=== PATIENT | female | born 1990 | race Caucasian/White ===

== ENCOUNTER 2017-11-11 10:08 | Inpatient (IN) | payer OTHER ==
[2017-11-08 14:35] VITALS: BMI 34.7
[2017-11-11] MEDS ORDERED: ceFAZolin IN SWFI 2 GM/20 ML SYRINGE IVP ONE (10:24)
[2017-11-11] MEDS ORDERED: CITRIC ACID-SODIUM CITRATE 15 ML CUP PO ONE (10:24)
[2017-11-11 11:03] LABS: Basophils % (A) 0 %; Eosinophils # (A) 0.1 k/uL (0-0.7); Eosinophils % (A) 1 %; HCT 40.9 % (34.0-46.0); HGB 13.6 gm/dL (11.4-16.0); Lymphocytes # (A) 1.7 k/uL (1.0-4.8); Lymphocytes % (A) 21 %; MCH 30.8 pg (25.0-35.0); MCHC 33.1 g/dL (31.0-37.0); Mean Platelet Volume 7.9; Monocytes # (A) 0.3 k/uL (0-1.0); Monocytes % (A) 4 %; Neutrophils # (A) 5.9 k/uL (1.3-7.7); Neutrophils % (A) 73 %; Platelet Count 262 k/uL (150-450); RDW 14.7 % (11.5-15.5); WBC 8.1 k/uL (3.8-10.6)
[2017-11-11 11:06] LABS: Glucose,Whole Blood 96 mg/dL (75-99)
[2017-11-11] MEDS: LACTATED RINGERS 1,000 ML IV SCH ×4 (11:28→22:20)
--- NOTE | 2017-11-11 12:05 | P.HPOB ---
History of Present Illness H&P Date: 11/11/17 Chief Complaint: IUP @ 39 2/7 weeks, RCS with TL This is a 27-year-old 3 para 2001 at 39-2/7 weeks with an estimated due date of 11/16/2017. Patient presents for repeat . She also desires permanent sterilization at this time. On blood work showed a blood type of O+, rubella immune, hepatitis B surface Center negative, RPR nonreactive, HIV negative, GBS negative. Review of Systems Constitutional: Reports as per HPI Cardiovascular: Denies chest pain Respiratory: Denies cough, Denies dyspnea Gastrointestinal: Denies constipation, Denies diarrhea Genitourinary: Reports Past Medical History Past Medical History: GERD/Reflux Additional Past Medical History / Comment(s): HX OF RIGHT KNEE FX., GERD DURING , IBS WITH CONSTIPATION., ., GESTATIONAL DIABETES-DIET CONTROLLED., History of Any Multi-Drug Resistant Organisms: None Reported Past Surgical History: Adenoidectomy, Section, Tonsillectomy Additional Past Surgical History / Comment(s): X2. Past Anesthesia/Blood Transfusion Reactions: No Reported Reaction Past Psychological History: Depression Additional Psychological History / Comment(s): currently on zoloft Smoking Status: Former smoker Past Alcohol Use History: None Reported Additional Past Alcohol Use History / Comment(s): QUIT SMOKING 2015, SMOKED 1/2 PPD, SMOKED 5-6 YEARS. Past Drug Use History: None Reported - Past Family History Mother Family Medical History: COPD Medications and Allergies Home Medications Medication Instructions Recorded Confirmed Type Pnv,Calcium 72/Iron/Folic Acid 1 tab PO DAILY 09/24/14 11/11/17 History [ Vitamin with Low Iron] Sertraline HCl [Zoloft] 100 mg PO DAILY 09/23/17 11/11/17 History Iron (Unknown Dose) 1 tab PO DAILY 11/08/17 History Allergies Allergy/AdvReac Type Severity Reaction Status Date / Time Paper Tape Allergy Unknown Rash/Hives Uncoded 11/08/17 14:26 Exam Osteopathic Statement: *. No significant issues noted on an osteopathic structural exam other than those noted in the History and Physical/Consult. - Vital Signs Vital signs: Vital Signs Temp Pulse Resp BP 11/11/17 10:23 97.5 F L 87 18 121/72 Intake and Output 11/10/17 11/11/17 11/11/17 22:59 06:59 14:59 Other: Weight 97.522 kg Patient Weight 11/12/17 06:59 Weight 97.522 kg - OBG Physical Exam Abdomen: gravid Uterus: enlarged Results Result Diagrams: 11/11/17 10:40 Assessment and Plan (1) tubal ligation planned Current Visit: Yes Status: Acute Code(s): STN2929 - SNOMED Code(s): 132769019 (2) History of Narrative/Plan: Plan to admit this patient for repeat section with tubal ligation. Patient states that she is sure she is done with childbearing. Risks of surgery were reviewed with patient in detail including but not limited to infection, bleeding, damage to bladder bowel ureteric, injury patient states understanding and informed consent was obtained. Anticipate routine postoperative care Current Visit: No Status: Acute Code(s): Z98.89 - OTHER SPECIFIED POSTPROCEDURAL STATES * DO NOT USE * SNOMED Code(s): 509453367
[2017-11-11] MEDS ORDERED: KETOROLAC 30 MG/ML 1 ML VIAL ONE (12:12)
[2017-11-11] MEDS ORDERED: OXYTOCIN 10 UNIT/ML 1 ML VIAL ONE (12:12)
[2017-11-11] MEDS ORDERED: MORPHINE SULFATE (PF) 0.3 MG/0.3 ML SYR ONE (12:12)
[2017-11-11] MEDS ORDERED: PHENYLEPHRINE-0.9% NACL SYG 1 MG/10 ML SYRINGE ONE (12:12)
[2017-11-11] MEDS ORDERED: ePHEDrine 50 MG/ML 1 ML AMP ONE (12:12)
[2017-11-11] MEDS ORDERED: diphenhydrAMINE 50 MG/ML 1 ML VIAL IVP PRN ×2 (13:01)
[2017-11-11] MEDS ORDERED: METOCLOPRAMIDE 5 MG/ML 2 ML VIAL IVP PRN (13:01)
[2017-11-11] MEDS ORDERED: LANOLIN CREAM 5 GM TUBE TOPICAL PRN (13:01)
[2017-11-11] MEDS ORDERED: ONDANSETRON 4 MG/2 ML VIAL IVP PRN (13:01)
[2017-11-11] MEDS ORDERED: ACETAMINOPHEN TAB 325 MG TAB PO PRN (13:01)
[2017-11-11] MEDS ORDERED: NALOXONE 0.4 MG/ML 1 ML VIAL IV PRN (13:01)
[2017-11-11] MEDS ORDERED: Acetaminophen-Codeine 300-30mg TAB PO PRN (13:01)
[2017-11-11] MEDS ORDERED: diphenhydrAMINE 25 MG CAP PO PRN (13:01)
[2017-11-11] MEDS ORDERED: ZOLPIDEM 5 MG TAB PO PRN (13:01)
[2017-11-11] MEDS ORDERED: ACETAMINOPHEN IV (For NPO) 1,000 MG in EMPTY BAG 1 BAG IVPB ONE (13:01)
[2017-11-11] MEDS ORDERED: IBUPROFEN IV 800 MG in SODIUM CHLORIDE 0.9% 250 ML IV ONE (13:03)
--- NOTE | 2017-11-11 13:04 | P.OP ---
Date of Procedure: 11/11/17 Preoperative Diagnosis: IUP at 39-2/7 weeks, history of 2 desires repeat. Family status complete desires tubal ligation Postoperative Diagnosis: Same Procedure(s) Performed: Repeat section with tubal ligation Anesthesia: spinal Surgeon: Rosario Mejía Ball Warper Tender #1: Ruchi Fletcher Estimated Blood Loss (ml): 600 IV fluids (ml): 1,000 Urine output (ml): 200 Pathology: other (Placenta, segment of fallopian tubes, right, left) Condition: stable Disposition: observation Indications for Procedure: History of 2 Operative Findings: Normal appearing uterus tubes and ovaries, filmy anterior bladder adhesions taken down sharply with good hemostasis and visualization of the bladder Description of Procedure: The patient was prepped and draped in the usual fashion after spinal anesthesia was administered. A Pfannenstiel incision was made and extended of the abdominal cavity without difficulty. The bladder peritoneum was elevated and incised and reflected distally. A 2 cm incision was made in the transverse plane of the lower uterine segment to enter the uterus at which time clear fluid was noted. The incision was extended in both directions using the bandage scissors. The head was encountered within the field and delivered up and through the incision where the nose and mouth were thoroughly suctioned. Remainder of the was delivered onto the surgical field where the cord was doubly clamped, cut, and the infant was passed for resuscitative measures with weight and Apgars as noted above. A segment of cord was then doubly clamped, cut, and set aside should cord gases become necessary. The placenta was delivered manually, intact, and was grossly normal with a grossly normal three-vessel cord. The uterus was exteriorized and the interior cavity of the uterus swept of any remaining placental and membranous fragments with a laparotomy sponge. The margins of the incision were grasped with Allis clamps and the incision closed in 2 layers. First layer was a running locking layer of 0 vicryl from margin to margin followed by a second layer of imbricating 0 chromic catgut from margin to margin. Any small points of bleeding were then made hemostatic with the Bovie. Once hemostasis was achieved, the posterior cul -de-sac was suctioned with a guard and the uterine and ovarian findings are as noted above. The uterus was replaced within the abdominal cavity and the gutters swept of any remaining blood fluid or clot. The incision was again reexamined and hemostasis was noted to be excellent. Any small point of bleeding were made hemostatic with the Bovie. segments of fallopian tube were grasped and crushed with a hemostat, it was then doubly tied with plain cat gut and transected. hemostasis was appreciated. this was then repeated ont eh opposite side with good hemostasis being appreciated. Once hemostasis was achieved the parietal peritoneum was loosely reapproximated. The layer of muscles were examined and made hemostatic with the Bovie. Attention was then turned to the fascia which was closed with 2 running stitches of 0 Vicryl proceeding from the lateral margins to the midpoint. The subcutaneous tissues were irrigated, made hemostatic with the Bovie, and reapproximated with a running stitch of 30 plain catgut. The skin was reapproximated with 4-0 vicryl. Estimated blood loss for the case was approximately 600 mL. All sponge instrument and needle counts are correct. There were no complications. The patient tolerated the procedure well and proceeded to the recovery room in stable condition. Both mother and are resting comfortably in recovery.
[2017-11-11] MEDS ORDERED: OXYTOCIN 20 UNITS/1000 ML NS 1,000 ML IV SCH (13:15)
[2017-11-11] MEDS: diphenhydrAMINE 50 MG CAP PO PRN (18:26)
[2017-11-11] MEDS: SENNOSIDES-DOCUSATE SODIUM 1 EACH TAB PO SCH (20:58)
[2017-11-12] MEDS: diphenhydrAMINE 50 MG CAP PO PRN ×2 (00:10→11:34)
[2017-11-12] MEDS: Acetaminophen-Codeine 300-30mg TAB PO PRN ×4 (03:09→22:31)
[2017-11-12] MEDS: LACTATED RINGERS 1,000 ML IV SCH (04:09)
[2017-11-12 07:25] LABS: Basophils % (A) 0 %; Eosinophils # (A) 0.1 k/uL (0-0.7); Eosinophils % (A) 1 %; HGB 11.1 gm/dL (11.4-16.0); Lymphocytes # (A) 2.3 k/uL (1.0-4.8); Lymphocytes % (A) 25 %; MCH 31.5 pg (25.0-35.0); MCHC 32.7 g/dL (31.0-37.0); MCV 96.2 fL (80.0-100.0); Mean Platelet Volume 8.3; Monocytes # (A) 0.4 k/uL (0-1.0); Monocytes % (A) 5 %; Neutrophils # (A) 6.4 k/uL (1.3-7.7); Neutrophils % (A) 68 %; Platelet Count 212 k/uL (150-450); RBC 3.53 m/uL (3.80-5.40); RDW 14.5 % (11.5-15.5); WBC 9.5 k/uL (3.8-10.6)
[2017-11-12] MEDS: IBUPROFEN 600 MG TAB PO PRN ×3 (07:58→20:02)
[2017-11-12] MEDS: SENNOSIDES-DOCUSATE SODIUM 1 EACH TAB PO SCH ×2 (07:58→21:19)
--- NOTE | 2017-11-12 09:27 | P.PN ---
Progress Note - Text Progress Note Date: 11/12/17 Postoperative day 1 status post section under spinal anesthesia, and intrathecal morphine given for postoperative analgesia, patient doing well, there is no anesthesia related complications, Patient had no headache, vital signs stable , Assessment and plan= postop day 1 status post , doing well there is no paresthesia radiated complication
--- NOTE | 2017-11-12 10:17 | P.PN ---
Subjective Progress Note Date: 11/12/17 Principal diagnosis: Postop day 1 status post repeat with tubal ligation Lizzy is doing well postoperatively. She is ambulating and voiding without difficulty. She is tolerating a regular diet without nausea or vomiting. She states her pain is well-controlled. Her only complaint is some minor itching. She wishes to get up today and shower. She is thinking she would like to go home tomorrow. She states her lochia is minimal Objective - Vital Signs Vital signs: Vital Signs Temp 98.1 F 11/12/17 08:00 Pulse 71 11/12/17 08:00 Resp 16 11/12/17 08:00 BP 101/61 11/12/17 08:00 Pulse Ox 98 11/12/17 08:00 Intake & Output 11/11/17 11/12/17 11/12/17 18:59 06:59 18:59 Output Total 200 1000 Balance -200 -1000 Weight 97.522 kg Output: Urine 200 1000 Uretheral (Judd) 200 Other: # Voids 1 6 - Constitutional General appearance: Present: cooperative, no acute distress - Respiratory Respiratory: bilateral: CTA - Gastrointestinal Gastrointestinal Comment(s): Incision is clean dry and intact with Steri-Strips in place General gastrointestinal: Present: normal bowel sounds, soft - Psychiatric Psychiatric: Present: A&O x's 3 - Labs CBC & Chem 7: 11/12/17 07:13 Labs: Abnormal Lab Results - Last 24 Hours (Table) 11/12/17 Range/Units 07:13 RBC 3.53 L (3.80-5.40) m/uL Hgb 11.1 L (11.4-16.0) gm/dL Assessment and Plan (1) tubal ligation planned Current Visit: Yes Status: Acute Code(s): IMG2488 - SNOMED Code(s): 387282687 (2) History of Narrative/Plan: Postoperative course is uneventful. She will continue to increase ambulation today. And we will plan discharge for tomorrow on postop day 2. Current Visit: No Status: Acute Code(s): Z98.89 - OTHER SPECIFIED POSTPROCEDURAL STATES * DO NOT USE * SNOMED Code(s): 970935870
[2017-11-12] MEDS: SERTRALINE 100 MG TAB PO SCH (13:24)
[2017-11-13] MEDS: IBUPROFEN 600 MG TAB PO PRN ×2 (05:19→11:57)
--- NOTE | 2017-11-13 08:09 | P.DS ---
Providers Date of admission: 11/11/17 10:08 Expected date of discharge: 11/13/17 Attending physician: Rosario Mejía Primary care physician: Stated None - Discharge Diagnosis(es) (1) tubal ligation planned Current Visit: Yes Status: Acute (2) History of Current Visit: No Status: Acute Hospital Course: This is a 27-year-old 3 para 2001 that presented on 25 for elective repeat section with tubal ligation. Patient went uneventful for further details on the please see the operative report. Patient' s postoperative course has been benign. She is ambulatory and voiding on this postop day 2. She is tolerating a regular diet without nausea or vomiting. She states her pain is well controlled with oral medication. Breast-feeding is going well, and lochia is minimal. Plan - Discharge Summary Discharge Rx Participant: Yes New Discharge Prescriptions: No Action Pnv,Calcium 72/Iron/Folic Acid [ Vitamin with Low Iron] 1 tab PO DAILY Sertraline HCl [Zoloft] 100 mg PO DAILY Iron (Unknown Dose) 1 tab PO DAILY Discharge Medication List Pnv,Calcium 72/Iron/Folic Acid [ Vitamin with Low Iron] 1 tab PO DAILY 09/24/14 [History] Sertraline HCl [Zoloft] 100 mg PO DAILY 09/23/17 [History] Iron (Unknown Dose) 1 tab PO DAILY 11/08/17 [History] Follow up Appointment(s)/Referral(s): Rosario Mejía DO [Doctor of Osteopathic Medicine] - 2 Weeks Patient Instructions/Handouts: (DC), Your Baby (DC) Discharge Disposition: HOME SELF-CARE
[2017-11-13] MEDS: Acetaminophen-Codeine 300-30mg TAB PO PRN (08:19)
[2017-11-13] MEDS: SENNOSIDES-DOCUSATE SODIUM 1 EACH TAB PO SCH (08:20)
[2017-11-13 09:42] VITALS: BP 120/75; PULSE 70; RESP 18; TEMP 98.3
[2017-11-13] MEDS: SERTRALINE 100 MG TAB PO SCH (13:06)
== END 2017-11-13 12:00 | disposition home or self-care (01) | DRG 766 ==
LOC: 4FBP 10:08
PROVIDERS: ADMIT Obstetrics & Gynecology Obstetrics; ATTEND Obstetrics & Gynecology Obstetrics
PROC: 0UB70ZZ Excision of Bilateral Fallopian Tubes, Open Approach (ICD-10-PCS; 2017-11-11)
PROC: 00HU33Z Insertion of Infusion Device into Spinal Canal, Percutaneous Approach (ICD-10-PCS; 2017-11-11)
PROC: 3E0R3NZ Introduction of Analgesics, Hypnotics, Sedatives into Spinal Canal, Percutaneous Approach (ICD-10-PCS; 2017-11-11)
PROC: 10D00Z1 Extraction of Products of Conception, Low, Open Approach (ICD-10-PCS; principal; 2017-11-11 12:00)
DX: O34.211 Maternal care for low transverse scar from previous cesarean delivery (principal); F32.9 Major depressive disorder, single episode, unspecified; O99.344 Other mental disorders complicating childbirth; Z37.0 Single live birth; Z3A.39 39 weeks gestation of pregnancy; Z87.891 Personal history of nicotine dependence; Z82.5 Family history of asthma and other chronic lower respiratory diseases; Z79.899 Other long term (current) drug therapy; Z86.32 Personal history of gestational diabetes; Z91.048 Other nonmedicinal substance allergy status; Z87.19 Personal history of other diseases of the digestive system
CPT/HCPCS: 85025; 86850; 86900; 86901; 88302; 88307

== ENCOUNTER 2025-02-17 04:13 | Emergency (ER) | payer BC ==
--- NOTE | 2025-02-17 04:48 | ED ---
General Adult HPI - General Source: patient, RN notes reviewed, old records reviewed Mode of arrival: ambulatory <Georges Rowe - Last Filed: 02/17/25 05:19> <Merlin Hayes - Last Filed: 02/17/25 10:19> - General Chief complaint: Abdominal Pain Stated complaint: abd pain Time Seen by Provider: 02/17/25 04:19 - History of Present Illness Initial comments: 34-year-old female with right upper quadrant abdominal pain which began s uddenly. This was associated with right flank pain as well and is subsequently resolved. This was associated with nausea vomiting as well as diarrhea. No fever. Patient denies any current pain. No prior history of gallstones or kidney stones. (Georges Rowe) - Related Data Home Medications Medication Instructions Recorded Confirmed Pnv,Calcium 72/Iron/Folic Acid 1 tab PO DAILY 09/24/14 11/11/17 [ Vitamin with Low Iron] Sertraline HCl [Zoloft] 100 mg PO DAILY 09/23/17 11/11/17 Iron (Unknown Dose) 1 tab PO DAILY 11/08/17 Allergies Allergy/AdvReac Type Severity Reaction Status Date / Time Paper Tape Allergy Unknown Rash/Hives Uncoded 02/17/25 04:20 Review of Systems ROS Other: All systems not noted in ROS Statement are negative. <Georges Rowe - Last Filed: 02/17/25 05:19> ROS Other: All systems not noted in ROS Statement are negative. <Merlin Hayes - Last Filed: 02/17/25 10:19> ROS Statement: Those systems with pertinent positive or pertinent negative responses have been documented in the HPI. Past Medical History Past Medical History: No Reported History Additional Past Medical History / Comment(s): Obstetric history: Primary low transverse section at 39+ weeks for nonreassuring heart tones. complicated by gestational diabetes, insulin-dependent History of Any Multi-Drug Resistant Organisms: None Reported Past Surgical History: Adenoidectomy, Section, Tonsillectomy Additional Past Surgical History / Comment(s): X2. Past Anesthesia/Blood Transfusion Reactions: Motion Sickness Past Psychological History: No Psychological Hx Reported Smoking Status: Never smoker Past Alcohol Use History: None Reported Past Drug Use History: None Reported - Past Family History Mother Family Medical History: COPD <Georges Rowe - Last Filed: 02/17/25 05:19> General Exam General appearance: alert, in no apparent distress Head exam: Present: atraumatic, normocephalic Eye exam: Present: normal appearance, PERRL ENT exam: Present: normal exam Neck exam: Present: normal inspection. Absent: tenderness, meningismus Respiratory exam: Present: normal lung sounds bilaterally. Absent: respiratory distress, wheezes Cardiovascular Exam: Present: regular rate, normal rhythm GI/Abdominal exam: Present: soft, tenderness (Very mild right upper quadrant tenderness). Absent: distended, guarding, rebound Neurological exam: Present: alert, oriented X3 Psychiatric exam: Present: normal affect, normal mood Skin exam: Present: warm, dry, intact. Absent: cyanosis, diaphoretic <Georges Rowe - Last Filed: 02/17/25 05:19> Course Vital Signs 02/17/25 02/17/25 04:16 08:49 Temperature 98.1 F 97.6 F Pulse Rate 79 68 Respiratory 18 14 Rate Blood Pressure 112/75 91/60 O2 Sat by Pulse 99 99 Oximetry Medical Decision Making - Lab Data Result diagrams: 02/17/25 04:42 02/17/25 04:42 <Georges Rowe Suzy - Last Filed: 02/17/25 05:19> - Lab Data Result diagrams: 02/17/25 04:42 02/17/25 04:42 <Merlin Hayes - Last Filed: 02/17/25 10:19> - Medical Decision Making Was pt. sent in by a medical professional or institution ([facility], [facility], urgent care, hospital, or fdc...) When possible be specific @ -No Did you speak to anyone other than the patient for history (EMS, parent, family, police, friend...)? What history was obtained from this source @ -No Did you review nursing and triage notes (agree or disagree)? Why? @ -I reviewed and agree with nursing and triage notes Were old charts reviewed (outside hosp., previous admission, EMS record, old EKG, old radiological studies, urgent care reports/EKG's, fdc records)? Report findings @ -No old charts were reviewed Differential Abdominal Pain Women: Appendicitis, Cholecystitis, diverticulosis, ischemic bowel, pancreatitis, hepatitis, UTI, gastroenteritis, AAA, incarcerated hernia, bowel obstruction, constipation, inflammatory bowel, hepatitis, peptic ulcer disease, splenic infarction, perforated viscus, vulvitis, ovarian torsion, PID, kidney stone, placenta abruption, this is not meant to be an all-inclusive list EKG interpreted by me (3pts min.). @ -As above X-rays interpreted by me (1pt min.). @ -None done CT interpreted by me (1pt min.). @ -None done U/S interpreted by me (1pt. min.). @Ultrasound right upper quadrant and gallbladder has been ordered, results pending What testing was considered but not performed or refused? (CT, X-rays, U/S, labs)? Why? @ -None What meds were considered but not given or refused? Why? @ -None Did you discuss the management of the patient with other professionals (professionals i.e. , PA, SLEEVE SETTER LOCKSTITCH, lab, RT, psych nurse, oncology social worker, carpet mechanic, teacher, restoration officer, trimming caser)? Give summary @ -No Was smoking cessation discussed for >3mins.? @ -No Was critical care preformed (if so, how long)? @ -No Were there social determinants of health that impacted care today? How? (Homelessness, low income, unemployed, alcoholism, drug addiction, transportation, low edu. Level, literacy, decrease access to med. care, residential, rehab)? @ -No Was there de-escalation of care discussed even if they declined (Discuss DNR or withdrawal of care, Hospice)? DNR status @ -No What co-morbidities impacted this encounter? (DM, HTN, Smoking, COPD, CAD, Cancer, CVA, ARF, Chemo, Hep., AIDS, mental health diagnosis, sleep apnea, morbid obesity)? @ -None Was patient admitted / discharged? Hospital course, mention meds given and route, prescriptions, significant lab abnormalities, going to OR and other pertinent info. @ 34-year-old female with a episode of right upper quadrant abdominal pain nausea vomiting. Patient has a normal CBC, CMP does show a transaminitis and a mildly elevated lipase. Patient will benefit from imaging of the gallbladder and biliary tree. This has been ordered, results pending. Care signed out to Dr. Hayes at shift change awaiting these results and reevaluation. (Georges Rowe) Patient signed out to me pending results of ultrasound. Presented overnight for nausea with vomiting as well as upper abdominal pain in epigastric region. This all subsided. Did not require any medications in our ER. Laboratory studies obtained by previous provider showed slightly elevated LFTs, reminiscent of a pattern of someone who drinks alcohol on a regular basis. She does have a prior history of this however currently sober. Lipase minimally elevated to 335. Remainder the labs unremarkable. Gallbladder ultrasound as interpreted myself returned remarkable for a gallstone present as well as borderline gallbladder wall thickening. No CBD dilation. I discussed the case with the on-call surgeon, Dr. Hays and as patient is currently asymptomatic and would like to go home he is in agreement. Patient can follow-up with him on an outpatient basis. Strict return precautions were discussed with the patient and she was in agreement this plan. As stated above, patient is asymptomatic at time of discharge. Discussed sticking to a liquid diet for at least a day and return to the ER immediately if pain returns or nausea or vomiting becomes more severe. She was in agreement this plan. I will provide the patient with a prescription for starter pack of ODT Zofran. I instructed the patient to follow up with their PCP in the next 1-3 days. I provided contact information for follow up with general surgery, gastroenterology. I explained that the patient should return to the emergency department if they experience any worsening symptoms. Strict return precautions were discussed with the patient. The patient expressed understanding of these instructions. I answered all questions that the patient had. The patient was discharged home in good condition with their prescriptions and follow up information. Diagnosis/symptom? @ -Biliary colic Acute, or Chronic, or Acute on Chronic? @ -Acute Uncomplicated (without systemic symptoms) or Complicated (systemic symptoms)? @ -Uncomplicated Side effects of treatment? @ -None Exacerbation, Progression, or Severe Exacerbation] @ -No Poses a threat to life or bodily function? @ -Unlikely at this time (Merlin Hayes) - Lab Data Lab Results 02/17/25 02/17/25 02/17/25 Range/Units 04:42 04:42 04:42 WBC 9.17 (4.50-10.00) 10*3/uL RBC 4.45 (4.10-5.20) 10*6/uL Hgb 12.8 (12.0-15.0) g/dL Hct 38.7 (37.2-46.3) % MCV 87.0 (80.0-97.0) fL MCH 28.8 (27.0-32.0) pg MCHC 33.1 (32.0-37.0) g/dL Plt Count 275 (140-440) 10*3/uL MPV 11.0 (9.5-12.2) fL Immature Gran % (Auto) 0.3 % Neutrophils % 84.1 % Lymphocytes % 9.4 % Monocytes % 4.3 % Eosinophils % 1.1 % Basophils % 0.8 % Immature Gran # 0.03 (0.00-0.04) 10*3/uL Neutrophils # 7.72 H (1.80-7.70) 10*3/uL Lymphocytes # 0.86 L (0.90-5.00) 10*3/uL Monocytes # 0.39 (0.20-1.00) 10*3/uL Eosinophils # 0.10 (0.04-0.35) 10*3/uL Basophils # 0.07 (0.00-0.10) 10*3/uL PT 11.2 (10.0-12.5) sec INR 1.0 (<1.2) APTT 22.9 (22.0-30.0) sec Sodium 137 (137-145) mmol/L Potassium 4.2 (3.5-5.1) mmol/L Chloride 103 (98-107) mmol/L Carbon Dioxide 23 (22-30) mmol/L Anion Gap 11 mmol/L BUN 17 (7-17) mg/dL Creatinine 0.66 (0.52-1.04) mg/dL Est GFR (CKD-EPI)AfAm >90 (>60 ml/min/1.73 sqM) Est GFR (CKD-EPI)NonAf >90 (>60 ml/min/1.73 sqM) Glucose 152 H (74-99) mg/dL Plasma Lactic Acid Leo (0.7-2.0) mmol/L Calcium 9.5 (8.4-10.2) mg/dL Total Bilirubin 1.1 (0.2-1.3) mg/dL AST 250 H (14-36) U/L ALT 135 H (4-34) U/L Alkaline Phosphatase 96 (38-126) U/L Total Protein 7.3 (6.3-8.2) g/dL Albumin 4.3 (3.5-5.0) g/dL Amylase 68 (30-110) U/L Lipase 335 H (23-300) U/L Urine Color Urine Appearance (Clear) Urine pH (5.0-8.0) Ur Specific [place] (1.001-1.035) Urine Protein (Negative) Urine Glucose (UA) (Negative) Urine Ketones (Negative) Urine Blood (Negative) Urine Nitrite (Negative) Urine Bilirubin (Negative) Urine Urobilinogen (<2.0) mg/dL Ur Leukocyte Esterase (Negative) Urine HCG, Qual (Not Detectd) 02/17/25 02/17/25 02/17/25 Range/Units 04:42 08:26 08:26 WBC (4.50-10.00) 10*3/uL RBC (4.10-5.20) 10*6/uL Hgb (12.0-15.0) g/dL Hct (37.2-46.3) % MCV (80.0-97.0) fL MCH (27.0-32.0) pg MCHC (32.0-37.0) g/dL Plt Count (140-440) 10*3/uL MPV (9.5-12.2) fL Immature Gran % (Auto) % Neutrophils % % Lymphocytes % % Monocytes % % Eosinophils % % Basophils % % Immature Gran # (0.00-0.04) 10*3/uL Neutrophils # (1.80-7.70) 10*3/uL Lymphocytes # (0.90-5.00) 10*3/uL Monocytes # (0.20-1.00) 10*3/uL Eosinophils # (0.04-0.35) 10*3/uL Basophils # (0.00-0.10) 10*3/uL PT (10.0-12.5) sec INR (<1.2) APTT (22.0-30.0) sec Sodium (137-145) mmol/L Potassium (3.5-5.1) mmol/L Chloride (98-107) mmol/L Carbon Dioxide (22-30) mmol/L Anion Gap mmol/L BUN (7-17) mg/dL Creatinine (0.52-1.04) mg/dL Est GFR (CKD-EPI)AfAm (>60 ml/min/1.73 sqM) Est GFR (CKD-EPI)NonAf (>60 ml/min/1.73 sqM) Glucose (74-99) mg/dL Plasma Lactic Acid Leo 1.0 (0.7-2.0) mmol/L Calcium (8.4-10.2) mg/dL Total Bilirubin (0.2-1.3) mg/dL AST (14-36) U/L ALT (4-34) U/L Alkaline Phosphatase (38-126) U/L Total Protein (6.3-8.2) g/dL Albumin (3.5-5.0) g/dL Amylase (30-110) U/L Lipase (23-300) U/L Urine Color Yellow Urine Appearance Clear (Clear) Urine pH 6.0 (5.0-8.0) Ur Specific [place] 1.022 (1.001-1.035) Urine Protein Negative (Negative) Urine Glucose (UA) Negative (Negative) Urine Ketones 1+ H (Negative) Urine Blood Negative (Negative) Urine Nitrite Negative (Negative) Urine Bilirubin Negative (Negative) Urine Urobilinogen 2.0 (<2.0) mg/dL Ur Leukocyte Esterase Negative (Negative) Urine HCG, Qual Not Detected (Not Detectd) Disposition <Georges Rowe - Last Filed: 02/17/25 05:19> Is patient prescribed a controlled substance at d/c from ED?: No Time of Disposition: 09:06 <Merlin Hayes - Last Filed: 02/17/25 10:19> Clinical Impression: Biliary colic Disposition: HOME SELF-CARE Condition: Good Instructions (If sedation given, give patient instructions): Biliary Colic (ED) Referrals: Jerel Ulloa MD [Primary Care Provider] - 1-2 days Geronimo Hays MD [Medical Doctor] - 1-2 days Jessi Soto MD [STAFF PHYSICIAN] - 1-2 days
[2025-02-17 05:07] LABS: Basophils # (A) 0.07 10*3/uL (0.00-0.10); Basophils % (A) 0.8 %; Eosinophils % (A) 1.1 %; HCT 38.7 % (37.2-46.3); HGB 12.8 g/dL (12.0-15.0); Lymphocytes # (A) 0.86 10*3/uL (0.90-5.00); Lymphocytes % (A) 9.4 %; MCH 28.8 pg (27.0-32.0); MCHC 33.1 g/dL (32.0-37.0); Monocytes # (A) 0.39 10*3/uL (0.20-1.00); Monocytes % (A) 4.3 %; Neutrophils # (A) 7.72 10*3/uL (1.80-7.70); Neutrophils % (A) 84.1 %; Platelet Count 275 10*3/uL (140-440); RBC 4.45 10*6/uL (4.10-5.20); RDW 15.4 % (11.5-14.5); WBC 9.17 10*3/uL (4.50-10.00)
[2025-02-17 05:14] LABS: ALT 135 U/L (4-34); AST 250 U/L (14-36); African American GFR (CKD) >90 (>60 ml/min/1.73 sqM); Albumin 4.3 g/dL (3.5-5.0); Alkaline Phosphatase 96 U/L (38-126); Amylase 68 U/L (30-110); Anion Gap 11 mmol/L; Blood Urea Nitrogen 17 mg/dL (7-17); Calcium 9.5 mg/dL (8.4-10.2); Carbon Dioxide 23 mmol/L (22-30); Chloride 103 mmol/L (98-107); Glucose 152 mg/dL (74-99); Lipase 335 U/L (23-300); Non-African American GFR(CKD) >90 (>60 ml/min/1.73 sqM); Potassium 4.2 mmol/L (3.5-5.1); Sodium 137 mmol/L (137-145); Total Bilirubin 1.1 mg/dL (0.2-1.3); Total Protein 7.3 g/dL (6.3-8.2)
[2025-02-17 05:21] LABS: Partial Thromboplastin Time 22.9 sec (22.0-30.0); Prothrombin Time 11.2 sec (10.0-12.5)
--- NOTE | 2025-02-17 07:40 | US ---
EXAMINATION TYPE: US gallbladder DATE OF EXAM: 02/17/2025 COMPARISON: NONE CLINICAL INDICATION: Female, 34 years old with history of RUQ pain; RUQ pain last night, has subsided TECHNIQUE: Grayscale and color Doppler imaging of the right upper quadrant was performed. FINDINGS: EXAM MEASUREMENTS: Liver Length: 15.7 cm Gallbladder Wall: 0.38 cm CBD: 0.15 cm Right Kidney: 9.9 x 4.7 x 4.4 cm Pancreas: tail limited due to bowel gas. Appears wnl Liver: heterogeneous and enlarged Gallbladder: multiple gallstones seen in fundus. Wall thickening, but no evidence for Michaels's sign Evidence for sonographic Michaels's sign: No CBD: slightly limited due to size Right Kidney: wnl IMPRESSION: Cholelithiasis with gallbladder wall prominence correlate for signs and symptoms of cholecystitis. Co nsider HIDA scan. [facility], , 02/17/2025 7:37 AM
[2025-02-17 08:40] LABS: Appearance,Urine Clear (Clear); Bilirubin,Urine Negative (Negative); Blood,Urine Negative (Negative); Color,Urine Yellow; Glucose,Urine (UA) Negative (Negative); Ketones,Urine 1+ (Negative); Leukocyte Esterase,Urine Negative (Negative); Nitrite,Urine Negative (Negative); Protein,Urine Negative (Negative); Specific Gravity,Urine 1.022 (1.001-1.035)
[2025-02-17 08:51] VITALS: BP 91/60; PULSE 68; RESP 14; TEMP 97.6
[2025-02-17] MEDS: ONDANSETRON 4 MG ODT STARTER PACK 2 TAB BTL PO STA (09:18)
== END 2025-02-17 09:20 | disposition home or self-care (01) ==
LOC: EC 04:13
DX: K80.50 Calculus of bile duct without cholangitis or cholecystitis without obstruction (principal); Z88.8 Allergy status to other drugs, medicaments and biological substances
CPT/HCPCS: 36415; 80053; 82150; 83605; 83690; 85025; 85610; 85730; 81003; 81025; 76705; 99284; S0119

== ENCOUNTER → 2025-02-25 | Outpatient (CLI) | payer BC ==
[2025-02-25 15:59] LABS: ALT 65 U/L (8-44); AST 23 U/L (13-35); Albumin 4.6 g/dL (3.8-4.9); Albumin/Globulin Ratio 1.64 Ratio (1.60-3.17); Alkaline Phosphatase 88 U/L (41-126); BUN/Creat Ratio 16.86 Ratio (12.00-20.00); Blood Urea Nitrogen 11.8 mg/dL (9.0-27.0); Carbon Dioxide 26.2 mmol/L (21.6-31.8); Chloride 103 mmol/L (96-109); Globulin 2.8 g/dL (1.6-3.3); Glucose 101 mg/dL (70-110); Potassium 5.1 mmol/L (3.5-5.5); Sodium 140 mmol/L (135-145); Total Bilirubin 0.3 mg/dL (0.3-1.2); Total Protein 7.4 g/dL (6.2-8.2)
== END | disposition home or self-care (01) ==
LOC: LABWHC1 09:33
PROVIDERS: ATTEND Surgery
DX: K81.9 Cholecystitis, unspecified (principal)
CPT/HCPCS: 36415; 80053

== ENCOUNTER 2025-03-10 06:00 | Emergency (ER) | payer BC ==
--- NOTE | 2025-03-10 06:36 | ED ---
General Adult HPI - General Chief complaint: Nausea/Vomiting/Diarrhea Stated complaint: Nausea, vomiting Time Seen by Provider: 03/10/25 06:14 Source: patient, RN notes reviewed Mode of arrival: ambulatory Limitations: no limitations - History of Present Illness Initial comments: 34 year old female presents to the ED for evaluation of nausea and vomiting, food stuck. She had a cholecystectomy last Saturday, however her symptoms started last night. She endorses pain with swallowing and says she can't keep anything down. She endorses a feeling of pressure in the center of her chest. She denies any changes in urination, bowel movements, fevers, or chills. Patient states that she was eating chicken when she felt like it became stuck. She has not been able to keep anything down since this. She states she has been vomiting, frothy saliva, clear liquid. - Related Data Previous Rx's Medication Instructions Recorded oxyCODONE HCL [OxyIR] 5 mg PO Q6H PRN 3 Days #6 tab 03/05/25 Allergies Allergy/AdvReac Type Severity Reaction Status Date / Time Paper Tape Allergy Unknown Rash/Hives Uncoded 03/10/25 06:05 Review of Systems ROS Statement: Those systems with pertinent positive or pertinent negative responses have been documented in the HPI. ROS Other: All systems not noted in ROS Statement are negative. Past Medical History Past Medical History: No Reported History Additional Past Medical History / Comment(s): gestational DM, HTN that was being tx'd then found she was hypotensive and tx was discontinured 02/2025 History of Any Multi-Drug Resistant Organisms: None Reported Past Surgical History: Adenoidectomy, Section, Cholecystectomy, Tonsillectomy Additional Past Surgical History / Comment(s): X2 Past Anesthesia/Blood Transfusion Reactions: Motion Sickness Past Psychological History: No Psychological Hx Reported Smoking Status: Former smoker Past Alcohol Use History: None Reported Past Drug Use History: None Reported - Past Family History Mother Family Medical History: COPD General Exam Limitations: no limitations General appearance: alert, in no apparent distress Head exam: Present: atraumatic, normocephalic, normal inspection Eye exam: Present: normal appearance, PERRL, EOMI. Absent: scleral icterus, conjunctival injection, periorbital swelling Neck exam: Present: normal inspection. Absent: tenderness, meningismus, lymphadenopathy Respiratory exam: Present: normal lung sounds bilaterally. Absent: respiratory distress, wheezes, rales, rhonchi, stridor Cardiovascular Exam: Present: regular rate, normal rhythm, normal heart sounds. Absent: systolic murmur, diastolic murmur, rubs, gallop, clicks GI/Abdominal exam: Present: soft, normal bowel sounds. Absent: distended, tenderness, guarding, rebound, rigid Course Vital Signs 03/10/25 06:03 Temperature 98.8 F Pulse Rate 69 Respiratory 18 Rate Blood Pressure 117/77 O2 Sat by Pulse 100 Oximetry Medical Decision Making - Medical Decision Making Was pt. sent in by a medical professional or institution (, PA, OR DIRECTOR, urgent care, hospital, or [place] [facility] facility...) When possible be specific @ -No Did you speak to anyone other than the patient for history (EMS, parent, family, police, friend...)? What history was obtained from this source @ -No Did you review nursing and triage notes (agree or disagree)? Why? @ -I reviewed and agree with nursing and triage notes Were old charts reviewed (outside hosp., previous admission, EMS record, old EK G, old radiological studies, urgent care reports/EKG's, [place] [facility] facility records)? Report findings @ -No old charts were reviewed Differential Diagnosis (chest pain, altered mental status, abdominal pain women, abdominal pain men, vaginal bleeding, weakness, fever, dyspnea, syncope, headache, dizziness, GI bleed, back pain, seizure, CVA, palpatations, mental health, musculoskeletal)? @ -Esophageal food bolus, differential Abdominal Pain Women: Appendicitis, Cholecystitis, diverticulosis, ischemic bowel, pancreatitis, hepatitis, UTI, gastroenteritis, AAA, incarcerated hernia, bowel obstruction, c onstipation, inflammatory bowel, hepatitis, peptic ulcer disease, splenic infarction, perforated viscus, vulvitis, ovarian torsion, PID, kidney stone, placenta abruption, this is not meant to be an all-inclusive list n EKG interpreted by me (3pts min.). @ -As above X-rays interpreted by me (1pt min.). @ -None done CT interpreted by me (1pt min.). @ -None done U/S interpreted by me (1pt. min.). @ -None done What testing was considered but not performed or refused? (CT, X-rays, U/S, labs)? Why? @ -None What meds were considered but not given or refused? Why? @ -None Did you discuss the management of the patient with other professionals (professionals i.e. , PA, OR DIRECTOR, lab, RT, psych nurse, social worker school, theater manager, teacher, chief informatics officer, rn case mgr)? Give summary @ -Discussed the case with patient Surgeon Dr. Hays recommend GI evaluation GI is unavailable today, patient will be transferred to [facility]. This case discussed with [facility] accepts transfer Was smoking cessation discussed for >3mins.? @ -No Was critical care preformed (if so, how long)? @ -No Were there social determinants of health that impacted care today? How? (Homelessness, low income, unemployed, alcoholism, drug addiction, transportation, low edu. Level, literacy, decrease access to med. care, fpc, rehab)? @ -No Was there de-escalation of care discussed even if they declined (Discuss DNR or withdrawal of care, Hospice)? DNR status @ -No What co-morbidities impacted this encounter? (DM, HTN, Smoking, COPD, CAD, Cancer, CVA, ARF, Chemo, Hep., AIDS, mental health diagnosis, sleep apnea, morbid obesity)? @ -None Was patient admitted / discharged? Hospital course, mention meds given and route, prescriptions, significant lab abnormalities, going to OR and other pertinent info. @ -Transferred to [facility]. Patient has esophageal food bolus impacted, unalleviated after glucagon, Valium, Reglan. Patient transferred in stable condition. Undiagnosed new problem with uncertain prognosis? @ -No Drug Therapy requiring intensive monitoring for toxicity (Heparin, Nitro, Insulin, Cardizem)? @ -No Were any procedures done? @ -No Diagnosis/symptom? @ -Esophageal food bolus Acute, or Chronic, or Acute on Chronic? @ -Acute Uncomplicated (without systemic symptoms) or Complicated (systemic symptoms)? @ -Complicated Side effects of treatment? @ -No Exacerbation, Progression, or Severe Exacerbation? @ -No Poses a threat to life or bodily function? How? (Chest pain, USA, [place], pneumonia, PE, COPD, DKA, ARF, appy, cholecystitis, CVA, Diverticulitis, Homicidal, Suicidal, threat to staff... and all critical care pts) @ -Yes surgical intervention risk - Lab Data Result diagrams: 03/10/25 06:55 03/10/25 06:55 Lab Results 03/10/25 03/10/25 03/10/25 Range/Units 06:55 06:55 07:10 WBC 8.65 (4.50-10.00) 10*3/uL RBC 4.38 (4.10-5.20) 10*6/uL Hgb 12.5 (12.0-15.0) g/dL Hct 38.3 (37.2-46.3) % MCV 87.4 (80.0-97.0) fL MCH 28.5 (27.0-32.0) pg MCHC 32.6 (32.0-37.0) g/dL Plt Count 288 (140-440) 10*3/uL MPV 11.7 (9.5-12.2) fL Immature Gran % (Auto) 0.3 % Neutrophils % 69.6 % Lymphocytes % 20.0 % Monocytes % 6.5 % Eosinophils % 3.0 % Basophils % 0.6 % Immature Gran # 0.03 (0.00-0.04) 10*3/uL Neutrophils # 6.02 (1.80-7.70) 10*3/uL Lymphocytes # 1.73 (0.90-5.00) 10*3/uL Monocytes # 0.56 (0.20-1.00) 10*3/uL Eosinophils # 0.26 (0.04-0.35) 10*3/uL Basophils # 0.05 (0.00-0.10) 10*3/uL Sodium 138 (137-145) mmol/L Potassium 4.8 (3.5-5.1) mmol/L Chloride 105 (98-107) mmol/L Carbon Dioxide 26 (22-30) mmol/L Anion Gap 7 mmol/L BUN 9 (7-17) mg/dL Creatinine 0.69 (0.52-1.04) mg/dL Est GFR (CKD-EPI)AfAm >90 (>60 ml/min/1.73 sqM) Est GFR (CKD-EPI)NonAf >90 (>60 ml/min/1.73 sqM) Glucose 105 H (74-99) mg/dL Calcium 9.7 (8.4-10.2) mg/dL Total Bilirubin 0.6 (0.2-1.3) mg/dL AST 31 (14-36) U/L ALT 29 (4-34) U/L Alkaline Phosphatase 52 (38-126) U/L Total Protein 7.5 (6.3-8.2) g/dL Albumin 4.4 (3.5-5.0) g/dL Lipase 145 (23-300) U/L Urine Color Light Yellow Urine Appearance Clear (Clear) Urine pH 7.5 (5.0-8.0) Ur Specific [place] 1.019 (1.001-1.035) Urine Protein Negative (Negative) Urine Glucose (UA) Negative (Negative) Urine Ketones Negative (Negative) Urine Blood Negative (Negative) Urine Nitrite Negative (Negative) Urine Bilirubin Negative (Negative) Urine Urobilinogen <2.0 (<2.0) mg/dL Ur Leukocyte Esterase Negative (Negative) Disposition Clinical Impression: Esophageal obstruction due to food impaction Disposition: OTHER INSTITUTION NOT DEFINED Condition: Stable Referrals: Jerel Ulloa MD [Primary Care Provider] - 1-2 days Time of Disposition: 07:51 - Out of Hospital Transfer - Req. Specs Out of Hospital Transfer - Requested Specifics: Other Emergency Center ([facility])
[2025-03-10] MEDS: METOCLOPRAMIDE 5 MG/ML 2 ML VIAL IVP STA (06:58)
[2025-03-10] MEDS: SODIUM CHLORIDE 0.9% 1,000 ML IV ONE (07:01)
[2025-03-10] MEDS: PANTOPRAZOLE 40 MG/10 ML VIAL IVP STA (07:01)
[2025-03-10] MEDS: GLUCAGON 1 MG/ML VIAL IVP STA (07:07)
[2025-03-10] MEDS: diphenhydrAMINE 50 MG/ML 1 ML VIAL IVP STA (07:09)
[2025-03-10] MEDS: SODIUM CHLORIDE 0.9% 2,000 ML IV STA (07:10)
[2025-03-10 07:22] LABS: Basophils # (A) 0.05 10*3/uL (0.00-0.10); Basophils % (A) 0.6 %; Eosinophils # (A) 0.26 10*3/uL (0.04-0.35); HCT 38.3 % (37.2-46.3); HGB 12.5 g/dL (12.0-15.0); Lymphocytes # (A) 1.73 10*3/uL (0.90-5.00); MCH 28.5 pg (27.0-32.0); MCHC 32.6 g/dL (32.0-37.0); MCV 87.4 fL (80.0-97.0); Mean Platelet Volume 11.7 fL (9.5-12.2); Monocytes # (A) 0.56 10*3/uL (0.20-1.00); Monocytes % (A) 6.5 %; Neutrophils # (A) 6.02 10*3/uL (1.80-7.70); Neutrophils % (A) 69.6 %; Platelet Count 288 10*3/uL (140-440); RBC 4.38 10*6/uL (4.10-5.20); RDW 15.7 % (11.5-14.5); WBC 8.65 10*3/uL (4.50-10.00)
[2025-03-10 07:22] LABS: Appearance,Urine Clear (Clear); Bilirubin,Urine Negative (Negative); Blood,Urine Negative (Negative); Color,Urine Light Yellow; Glucose,Urine (UA) Negative (Negative); Ketones,Urine Negative (Negative); Leukocyte Esterase,Urine Negative (Negative); Nitrite,Urine Negative (Negative); PH, Urine 7.5 (5.0-8.0); Protein,Urine Negative (Negative); Specific Gravity,Urine 1.019 (1.001-1.035); Urobilinogen,Urine <2.0 mg/dL (<2.0)
[2025-03-10 07:32] LABS: ALT 29 U/L (4-34); African American GFR (CKD) >90 (>60 ml/min/1.73 sqM); Anion Gap 7 mmol/L; Blood Urea Nitrogen 9 mg/dL (7-17); Calcium 9.7 mg/dL (8.4-10.2); Carbon Dioxide 26 mmol/L (22-30); Chloride 105 mmol/L (98-107); Glucose 105 mg/dL (74-99); Lipase 145 U/L (23-300); Non-African American GFR(CKD) >90 (>60 ml/min/1.73 sqM); Sodium 138 mmol/L (137-145); Total Bilirubin 0.6 mg/dL (0.2-1.3)
[2025-03-10 07:43] LABS: AST 31 U/L (14-36); Albumin 4.4 g/dL (3.5-5.0); Alkaline Phosphatase 52 U/L (38-126); Potassium 4.8 mmol/L (3.5-5.1); Total Protein 7.5 g/dL (6.3-8.2)
[2025-03-10 08:56] VITALS: BP 108/62; PULSE 67; RESP 16; TEMP 98.7
== END 2025-03-10 08:56 | disposition other institution (70) ==
LOC: EC 06:00
DX: T18.128A Food in esophagus causing other injury, initial encounter (principal); Z91.09 Other allergy status, other than to drugs and biological substances; Z87.891 Personal history of nicotine dependence; W44.F3XA Food entering into or through a natural orifice, initial encounter
CPT/HCPCS: 36415; 80053; 83690; 85025; 81003; 99284; 96374; 96375 ×3; 96361; J1610; J2765; J3360; J2470